=== PATIENT | male | born 1990 | race Caucasian/White ===

== ENCOUNTER 2018-11-19 11:05 | Emergency (ER) | payer OTHER ==
[2018-11-19 11:18] VITALS: BP 145/98; PULSE 74; TEMP 98.1; BMI 29.9
--- NOTE | 2018-11-19 11:31 | PDOC ---
History of Present Illness - General Chief Complaint: Bite Stated Complaint: BEE STING TO RIGHT HEAD Time Seen by Provider: 11/19/18 11:26 - History of Present Illness Initial Comments: 11/19/18 11:33 Chief complaint: Bee sting History of present illness: Patient stung by a bee in the right catholic approximately 15 minutes [employer]. Redness and itching at the site. Episode of anaphylaxis approximately 2 years ago after a bee sting, treated at [facility], later underwent anti venin and injections with an director of business development, last injection approximately 2-3 months ago, usually carries an EpiPen, but did not have it with him today. Has not had an ALLERGIC reaction, bee sting, or need to use the EpiPen since the initial episode. Review of systems: Denies irritation or swelling of the throat, tongue, lips, face, denies chest tightness or wheezing, denies abdominal pain, nausea, vomiting, or diarrhea, denies generalized skin erythema, itching, or rash. Remainder of systems reviewed and negative Past medical history: Otherwise MedSurg negative Social/family history reviewed and noncontributory Physical exam: Alert and oriented well-developed well-nourished no acute distress cheerful and cooperative Afebrile, vital signs normal 1 cm erythema/induration right catholic, mildly tender. Well localized PERRLA, ENT clear. Specifically, there is no erythema, swelling, or edema of the oropharynx, tongue, lips, or face other than well localized at the site of the sting Neck supple without bruit mass or nose Chest clear with full breath sounds bilaterally. No wheezes rales or rhonchi CV regular without murmur rub or gallop pulses full and symmetric no JVD or edema no bruits no tachycardia Abdomen soft nontender without mass or organomegaly Skin clear, no rash, adequate turgor and mucous membranes Neurological intact Impression: No sign of systemic ALLERGIC reaction Plan: Benadryl and observation. Further treatment systemic symptoms develop. Past History - Past Medical History Allergies/Adverse Reactions: Allergies Allergy/AdvReac Type Severity Reaction Status Date / Time bee pollen Allergy Severe Swelling Verified 11/19/18 11:06 Home Medications: Ambulatory Orders Levocetirizine Dihydrochloride 5 mg PO HS 11/19/18 Montelukast Na [Singulair -] 5 mg PO HS 11/19/18 COPD: Yes Other medical history: ALLERGIC TO BEES - Suicide/Smoking/Psychosocial Hx Smoking History: Never smoked Information on smoking cessation initiated: No Hx Alcohol Use: Yes (OCC) *Physical Exam - Vital Signs Last Vital Signs Temp Pulse Resp BP Pulse Ox 98.1 F 74 16 145/98 99 11/19/18 11:06 11/19/18 11:06 11/19/18 11:06 11/19/18 11:06 11/19/18 11:06 Medical Decision Making - Medical Decision Making 11/19/18 12:07 After prolonged observation, patient remained asymptomatic except for local reaction. Repeat examination of the oropharynx, lungs, and abdomen are negative. Vital signs remain normal. Discharge to return if there are further symptoms. Fully ambulatory and asymptomatic. *DC/Admit/Observation/Transfer Diagnosis at time of Disposition: Bee sting Qualifiers: Encounter type: initial encounter Injury intent: accidental or unintentional Qualified Code(s): T63.441A - Toxic effect of venom of bees, accidental ( unintentional), initial encounter - Discharge Dispostion Disposition: HOME Condition at time of disposition: Stable Decision to Admit order: No - Referrals - Patient Instructions Printed Discharge Instructions: How to Care for an Insect Bite or Sting Additional Instructions: Cool compresses or ice to the bee sting. Continue Benadryl every 6 hours. Return to the ER immediately if any further symptoms develop. Be sure to have your EpiPen handy at all times as directed. - Post Discharge Activity
== END 2018-11-19 12:26 | disposition home or self-care (01) ==
LOC: FER 11:05
PROC: 3E023GC Introduction of Other Therapeutic Substance into Muscle, Percutaneous Approach (ICD-10-PCS; principal; 2018-11-19)
DX: T63.441A Toxic effect of venom of bees, accidental (unintentional), initial encounter (principal); Y93.89 Activity, other specified; Y92.89 Other specified places as the place of occurrence of the external cause; J44.9 Chronic obstructive pulmonary disease, unspecified
CPT/HCPCS: 99282-25